=== PATIENT | female | born 2005 | race Caucasian/White ===

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

== ENCOUNTER 2023-03-01 14:42 | Emergency (ER) | payer OTHER ==
[2023-03-01 14:48] VITALS: BP 100/56; PULSE 70; TEMP 98; BMI 25.7
[2023-03-01] MEDS ORDERED: ACETAMINOPHEN 500 MG TABLET (FP) PO ONE (15:46)
[2023-03-01 16:10] LABS: URINE APPEARANCE CLEAR; URINE BILIRUBIN NEGATIVE (NEGATIVE); URINE COLOR YELLOW; URINE GLUCOSE (UA) NEGATIVE (NEGATIVE); URINE KETONE NEGATIVE (NEGATIVE); URINE LEUK ESTERASE NEGATIVE (NEGATIVE); URINE NITRITE NEGATIVE (NEGATIVE); URINE PROTEIN NEGATIVE (NEGATIVE); URINE UROBILINOGEN 0.2 mg/dL (0.2-1.0)
[2023-03-01 16:13] LABS: HCG,QUALITATIVE URINE Negative
== END 2023-03-01 16:47 | disposition home or self-care (01) ==
LOC: JER 14:42
DX: R10.12 Left upper quadrant pain (principal); K92.0 Hematemesis; S00.12XA Contusion of left eyelid and periocular area, initial encounter; Y04.0XXA Assault by unarmed brawl or fight, initial encounter
CPT/HCPCS: 71046-TC-FY; 81003; 84703; 99284-25

== ENCOUNTER 2023-04-29 19:15 | Emergency (ER) | payer OTHER ==
[2023-04-29 19:22] VITALS: BP 97/57; PULSE 74; RESP 18; TEMP 98.9; BMI 26.2
== END 2023-04-29 21:04 | disposition home or self-care (01) ==
LOC: JERFT 19:15
DX: Z34.91 Encounter for supervision of normal pregnancy, unspecified, first trimester (principal)
CPT/HCPCS: 84703; 99283-25